=== PATIENT | male | born 1990 | race Caucasian/White ===

== ENCOUNTER 2017-04-07 20:01 | Emergency (ER) | payer MEDICAID ==
[2017-04-09] MEDS ORDERED: ACETAMINOPHEN 325 MG TAB (05:36)
== END 2017-04-08 17:49 | disposition home or self-care (01) ==
LOC: E/R 04-08 17:49
DX: J20.9 Acute bronchitis, unspecified (principal)
CPT/HCPCS: 99284; Z7502